=== PATIENT | male | born 1985 | race Caucasian/White ===

== ENCOUNTER 2022-08-05 08:52 | Observation (INO) | payer BC ==
[~2022-08-05] VITALS: Ht 170.2 cm; Wt 87.0 kg
[2022-08-05 09:13] LABS: BASOPHILS # (AUTO) 0.1 X10'3 (0-0.2); BASOPHILS % (AUTO) 0.7 % (0-1); EOSINOPHILS # (AUTO) 0.1 X10'3 (0-0.9); EOSINOPHILS % (AUTO) 1.3 % (0-6); HEMATOCRIT 50.2 % (42.0-52.0); HEMOGLOBIN 16.8 g/dl (14.0-17.9); LYMPHOCYTES # (AUTO) 2.6 X10'3 (1.1-4.8); LYMPHOCYTES % (AUTO) 23.5 % (21-51); MEAN CORPUSCULAR HEMOGLOBIN 30.1 PG (27.0-31.0); MEAN CORPUSCULAR HGB CONC 33.5 g/dL (33.0-36.5); MEAN CORPUSCULAR VOLUME 89.7 FL (78-98); MEAN PLATELET VOLUME 7.7 FL (7.4-10.4); MONOCYTES # (AUTO) 0.8 X10'3 (0-0.9); MONOCYTES % (AUTO) 7.7 % (2-12); NEUTROPHILS # (AUTO) 7.3 X10'3 (1.8-7.7); NEUTROPHILS % (AUTO) 66.8 % (42-75); PLATELET COUNT 306 X10'3 (140-440); RED CELL DISTRIBUTION WIDTH 12.9 % (11.5-14.5); WHITE BLOOD COUNT 10.9 X10'3 (4.5-11.0)
[2022-08-05 09:30] LABS: ALANINE AMINOTRANSFERASE 89 U/L (12-78); ALBUMIN 4.6 G/DL (3.4-5.0); ALBUMIN/GLOBULIN RATIO 1.1 (1.1-1.5); ALKALINE PHOSPHATASE 75 IU/L (46-116); ANION GAP 9 (8-16); ASPARTATE AMINO TRANSFERASE 39 U/L (10-37); BILIRUBIN,TOTAL 0.7 MG/DL (0.1-1.0); BLOOD UREA NITROGEN 11 MG/DL (7-18); BUN/CREATININE RATIO 10.7 (5.4-32.0); CHLORIDE 103 MMOL/L (99-107); CREATININE 1.03 MG/DL (0.60-1.10); GLUCOSE 128 MG/DL (70-104); POTASSIUM 4.3 MMOL/L (3.5-5.1); SODIUM 140 MMOL/L (135-145); TOTAL PROTEIN 8.7 G/DL (6.4-8.2); eGFR 81 ML/MIN
[2022-08-05 09:38] LABS: MAGNESIUM 2.3 MG/DL (1.5-2.4)
[2022-08-05 15:03] LABS: ETHANOL < 0.010 GM/DL (0.0-0.010)
[2022-08-05 15:07] LABS: URINE AMPHETAMINE SCREEN NEGATIVE (Neg); URINE BARBITUATE SCREEN NEGATIVE (Neg); URINE BENZODIAZEPINES SCREEN NEGATIVE (Neg); URINE CANNABINOID SCREEN NEGATIVE (Neg); URINE COCAINE SCREEN NEGATIVE (Neg); URINE METHADONE SCREEN NEGATIVE (Neg); URINE OPIATE SCREEN NEGATIVE (Neg); URINE PHENCYCLIDINE SCREEN NEGATIVE (Neg)
[2022-08-05] MEDS ORDERED: NO HOME MEDS (15:36)
[2022-08-05] MEDS ORDERED: metoprolol tartrate 1mg/ml inj IV PRN (15:45)
[2022-08-05] MEDS ORDERED: PERFLUTREN PROTEIN-A MICROSPHR (Optison) 0.22 MG/ML 3ML VIAL IV ONE (15:45)
[2022-08-05] MEDS ORDERED: ondansetron/PF 4mg/2ml inj IV PRN (15:45)
[2022-08-05] MEDS ORDERED: magnesium hydroxide 30ml (MOM) UD suspension PO PRN (15:45)
[2022-08-05] MEDS ORDERED: acetaminophen 325mg tablet PO PRN (15:45)
[2022-08-05] MEDS ORDERED: aminophylline 250mg/10ml inj. IV PRN (15:45)
[2022-08-05] MEDS ORDERED: mag hydrox/Alum hydrox/simeth 30ml oral suspension PO PRN (15:45)
[2022-08-05] MEDS ORDERED: nitroGLYCERIN 0.4mg SUBLingual tab SL PRN (15:45)
[2022-08-05] MEDS ORDERED: regadenoson 0.4mg/5ml syringe IV PRN (15:45)
[2022-08-05] MEDS ORDERED: hydrALAZINE 20mg/ml inj. IV PRN (15:55)
[2022-08-05] MEDS: normal saline 1000ml 1,000 ML IV SCH (16:46)
[2022-08-05 19:10] VITALS: BP 131/80
[2022-08-05] MEDS: docusate sod 100mg capsule PO SCH ×2 (19:29→20:34)
[2022-08-05 22:00] VITALS: BP 118/70
[2022-08-06] MEDS: normal saline 1000ml 1,000 ML IV SCH ×2 (01:45→16:28)
[2022-08-06 02:00] VITALS: BP 125/82
[2022-08-06 06:00] VITALS: BP 124/79
[2022-08-06] MEDS: docusate sod 100mg capsule PO SCH ×2 (07:32→19:07)
[2022-08-06 12:00] VITALS: BP 126/76
[2022-08-06 12:21] LABS: D-DIMER 0.34 MG/L FEU (0-0.50)
--- NOTE | 2022-08-06 16:05 | NUR ---
I agree with SHAISTA Fallon assessment but added that the pupils reaction was brisk. Pupil size 3 and PERRL. Cardiac is regular rhythm. Patient on standard precautions. and Fall risk scale included in my own assessment.
[2022-08-06 18:00] VITALS: BP 138/80
[2022-08-07] VITALS (11 sets, daily range): BP systolic 122–140; BP diastolic 74–92
[2022-08-07] MEDS: normal saline 1000ml 1,000 ML IV SCH ×2 (05:20→07:45)
[2022-08-07] MEDS: docusate sod 100mg capsule PO SCH (07:16)
[2022-08-07] MEDS ORDERED: regadenoson 0.4mg/5ml syringe IV ONE (09:20)
== END 2022-08-07 13:00 | disposition home or self-care (01) ==
LOC: ER 08:52 → INTOOBSV 15:47 → PCU 3S 15:47
PROVIDERS: ADMIT Family Medicine; ATTEND Family Medicine
DX: R07.89 Other chest pain (principal); Z20.822 Contact with and (suspected) exposure to COVID-19; R77.8 Other specified abnormalities of plasma proteins; J45.909 Unspecified asthma, uncomplicated; Z79.899 Other long term (current) drug therapy; Z88.0 Allergy status to penicillin; X50.0XXA Overexertion from strenuous movement or load, initial encounter; Y93.89 Activity, other specified; Y92.89 Other specified places as the place of occurrence of the external cause
CPT/HCPCS: 36415; 71045; 78452; 80053; 80305; 80320; 83735; 83880; 84484; 85025; 85379; 87081; 87811; 93005; 93017; 93306; 96360; 96361; 99285; A9500; G0378; J2785; J7030; A4349; A4649